=== PATIENT | female | born 1980 | race African-American/Black ===

== ENCOUNTER 2020-11-21 14:07 | Emergency (ER) | payer MEDICAID ==
[~2020-11-21] VITALS: Ht 170.2 cm; Wt 77.0 kg
[2020-11-21] MEDS ORDERED: OLAN10TA3 MT (14:57)
[2020-11-21 15:08] VITALS: BP 120/84
== END 2020-11-21 15:21 ==
LOC: ER 14:19
DX: Z76.0 Encounter for issue of repeat prescription (principal); R44.0 Auditory hallucinations; F17.200 Nicotine dependence, unspecified, uncomplicated; J40 Bronchitis, not specified as acute or chronic; F31.9 Bipolar disorder, unspecified
CPT/HCPCS: 93005; 99283; Z7610

== ENCOUNTER 2020-12-12 14:43 | Emergency (ER) | payer MEDICAID ==
[~2020-12-12] VITALS: Ht 165.1 cm; Wt 82.0 kg
[~2020-12-12 14:43] MED LIST: OLAN10TA3 MT
[2020-12-12 15:15] VITALS: BP 165/80
[2020-12-12] MEDS ORDERED: SODIUM CHLORIDE 0.9% 1,000 ML IV ONE (15:30)
[2020-12-12 15:43] LABS: CLARITY URINE CLEAR (CLEAR); COLOR URINE YELLOW (YELLOW); KETONES URINE NEGATIVE (NEGATIVE); LEUKOCYTE ESTERASE URINE 2+ (NEGATIVE); NITRITE URINE NEGATIVE (NEGATIVE); OCCULT BLOOD URINE NEGATIVE (NEGATIVE); PH URINE 5.5 (4.5-8.0); PROTEIN URINE NEGATIVE (NEGATIVE); SPECIFIC GRAVITY URINE 1.011 (1.005-1.030); UROBILINOGEN URINE 0.2 E.U./dL (0.2-1.0)
[2020-12-12 16:01] LABS: *AMPHETAMINES SCREEN URINE NEGATIVE (NEGATIVE)
[2020-12-12 16:02] LABS: *BARBITURATES SCREEN URINE NEGATIVE (NEGATIVE); *BENZODIAZEPINES SCREEN URINE NEGATIVE (NEGATIVE); *COCAINE SCREEN URINE NEGATIVE (NEGATIVE); METHADONE URINE SCREEN NEGATIVE (NEGATIVE); OPIATES URINE SCREEN NEGATIVE (NEGATIVE)
[2020-12-12 16:03] LABS: CANNABINOID URINE SCREEN NEGATIVE (NEGATIVE)
[2020-12-12 16:19] LABS: CHLORIDE 101 mEq/L (98-107)
[2020-12-12 16:20] LABS: PHENCYCLIDINE URINE SCREEN PRESUMTIVE POSITIVE (NEGATIVE)
[2020-12-12 16:21] LABS: BASOPHILS % 0.7 % (0.0-2.0); EOSINOPHILS % 0.3 % (0.0-5.0); HEMATOCRIT. 35.2 % (36.0-48.0); HEMOGLOBIN. 11.9 g/dL (12.0-16.0); LYMPHOCYTES % 7.4 % (20.0-50.0); MEAN CORPUSCULAR HEMOGLOBIN 26.7 pg (28.0-32.0); MEAN CORPUSCULAR VOLUME 78.8 fL (81.0-99.0); MEAN PLATELET VOLUME 7.6 fl (7.4-10.4); MONOCYTES % 6.5 % (2.0-8.0); NEUTROPHILS % 85.1 % (40.0-76.0); PLATELET 307 x1000/uL (130-400); RED BLOOD CELL COUNT 4.47 mill/uL (4.2-5.4); RED CELL DISTRIBUTION WIDTH 15.2 % (11.6-14.6)
[2020-12-12 16:25] LABS: ETHANOL BLOOD < 10 mg/dL
[2020-12-12 16:30] LABS: HCG SCREEN NEGATIVE
[2020-12-12] MEDS ORDERED: METRONIDAZOLE 500MG TABLET PO ONE (17:00)
[2020-12-12] MEDS ORDERED: CEFTRIAXONE SODIUM 250 MG/VIAL IM ONE (17:00)
[2020-12-12] MEDS ORDERED: DOXY100C2 MT (17:20)
[2020-12-12] MEDS ORDERED: NITR-87 MT (17:21)
[2020-12-12] MEDS ORDERED: METR500T MT (17:24)
[2020-12-15 09:09] LABS: NEISSERIA GONORRHOEAE NAA Negative (Negative)
== END 2020-12-12 18:30 | disposition home or self-care (01) ==
LOC: ER 14:43
DX: T40.991A Poisoning by other psychodysleptics [hallucinogens], accidental (unintentional), initial encounter (principal); A64 Unspecified sexually transmitted disease; I49.9 Cardiac arrhythmia, unspecified; Z86.59 Personal history of other mental and behavioral disorders; Y92.9 Unspecified place or not applicable
CPT/HCPCS: 36415; 80053; 80305; 80307; 80320; 80329; 81003; 82962; 84703; 85025; 87491; 87591; 93005; 96360; 99284; J7030; Z7610; G0480

== ENCOUNTER 2021-03-14 20:39 | Emergency (ER) | payer MEDICAID, OTHER ==
[~2021-03-14] VITALS: Ht 165.1 cm; Wt 87.0 kg
[~2021-03-14 20:39] MED LIST changes: +DOXY100C2 MT; +METR500T MT; +NITR-87 MT
[2021-03-14 21:34] LABS: BASOPHILS % 0.9 % (0.0-2.0); EOSINOPHILS % 2.2 % (0.0-5.0); HEMATOCRIT. 37.4 % (36.0-48.0); HEMOGLOBIN. 12.6 g/dL (12.0-16.0); LYMPHOCYTES % 25.3 % (20.0-50.0); MEAN CORPUSCULAR HEMOGLOBIN 26.9 pg (28.0-32.0); MEAN CORPUSCULAR VOLUME 79.6 fL (81.0-99.0); MEAN PLATELET VOLUME 7.2 fl (7.4-10.4); MONOCYTES % 8.3 % (2.0-8.0); NEUTROPHILS % 63.3 % (40.0-76.0); PLATELET 350 x1000/uL (130-400); RED BLOOD CELL COUNT 4.69 mill/uL (4.2-5.4); RED CELL DISTRIBUTION WIDTH 15.6 % (11.6-14.6)
[2021-03-14 21:42] LABS: CHLORIDE 108 mEq/L (98-107)
[2021-03-14 21:46] LABS: ETHANOL BLOOD < 10 mg/dL
[2021-03-15 01:26] LABS: CLARITY URINE CLOUDY (CLEAR); COLOR URINE YELLOW (YELLOW); KETONES URINE NEGATIVE (NEGATIVE); LEUKOCYTE ESTERASE URINE 2+ (NEGATIVE); NITRITE URINE NEGATIVE (NEGATIVE); OCCULT BLOOD URINE NEGATIVE (NEGATIVE); PH URINE 5.5 (4.5-8.0); PROTEIN URINE NEGATIVE (NEGATIVE); SPECIFIC GRAVITY URINE 1.007 (1.005-1.030); UROBILINOGEN URINE 0.2 E.U./dL (0.2-1.0)
[2021-03-15 01:40] LABS: *BARBITURATES SCREEN URINE NEGATIVE (NEGATIVE); *BENZODIAZEPINES SCREEN URINE NEGATIVE (NEGATIVE); *COCAINE SCREEN URINE NEGATIVE (NEGATIVE); METHADONE URINE SCREEN NEGATIVE (NEGATIVE); OPIATES URINE SCREEN NEGATIVE (NEGATIVE)
[2021-03-15 01:41] LABS: CANNABINOID URINE SCREEN NEGATIVE (NEGATIVE)
[2021-03-15 02:12] LABS: *AMPHETAMINES SCREEN URINE PRESUMTIVE POSITIVE (NEGATIVE); PHENCYCLIDINE URINE SCREEN PRESUMTIVE POSITIVE (NEGATIVE)
[2021-03-15 08:27] VITALS: BP 115/67
== END 2021-03-15 08:29 | disposition home or self-care (01) ==
LOC: ER 20:39
DX: T43.592A Poisoning by other antipsychotics and neuroleptics, intentional self-harm, initial encounter (principal); F20.9 Schizophrenia, unspecified; R00.0 Tachycardia, unspecified; F15.10 Other stimulant abuse, uncomplicated; Y92.018 Other place in single-family (private) house as the place of occurrence of the external cause
CPT/HCPCS: 36415; 80053; 80305; 80307; 80320; 80329; 81003; 81025; 82962; 85025; 93005; 99285; Z7610; G0480

== ENCOUNTER 2022-01-26 16:52 | Emergency (ER) | payer MEDICAID, OTHER ==
[~2022-01-26] VITALS: Ht 160 cm; Wt 77.0 kg
[~2022-01-26 16:52] MED LIST changes: -DOXY100C2 MT; +DOXY100C5 MT
[2022-01-26 16:54] VITALS: BP 152/104
== END 2022-01-26 17:42 | disposition left against medical advice (07) ==
LOC: ER 16:52
DX: Z53.21 Procedure and treatment not carried out due to patient leaving prior to being seen by health care provider (principal); T50.901A Poisoning by unspecified drugs, medicaments and biological substances, accidental (unintentional), initial encounter; Y92.9 Unspecified place or not applicable; F20.9 Schizophrenia, unspecified

== ENCOUNTER 2022-02-17 12:51 | Emergency (ER) | payer MEDICAID ==
[~2022-02-17] VITALS: Ht 167.6 cm; Wt 90.0 kg
[2022-02-17 12:52] VITALS: BP 111/64
== END 2022-02-17 16:48 | disposition left against medical advice (07) ==
LOC: ER 12:58
DX: R46.1 Bizarre personal appearance (principal)
CPT/HCPCS: 82962; 99283

== ENCOUNTER 2025-08-25 14:59 | Emergency (ER) | payer MEDICAID ==
[~2025-08-25] VITALS: Ht 165.1 cm; Wt 75.0 kg
[2025-08-25 15:04] VITALS: BP 105/77; PULSE 95; RESP 16; TEMP 97.8; O2SAT 97
[2025-08-25] MEDS ORDERED: OLANZAPINE 10MG TABLET PO SCH (15:30)
[2025-08-25] MEDS ORDERED: OLANZAPINE 5MG TABLET PO SCH ×2 (21:00)
== END 2025-08-25 15:38 | disposition left against medical advice (07) ==
LOC: ER 14:59
DX: R44.0 Auditory hallucinations (principal); F17.210 Nicotine dependence, cigarettes, uncomplicated
CPT/HCPCS: 99281